=== PATIENT | female | born 1960 | race Caucasian/White ===

== ENCOUNTER 2017-01-11 17:24 | Inpatient (IN) | payer OTHER ==
--- NOTE | ~2017-01-11 | PA ---
Unit #: [id number] #: [id number] Patient: YUNIOR WATSON [id number] [facility] [address] [place] [address] [id number] MR#: [id number] NAME: YUNIOR WATSON ROOM: P131 Age: 56 Sex: F Admission Date: 01/11/2017 : 1960 Date of Assessment: Attending Physician: Stacey Rebolledo M.D. Admitting Physician: Stacey Rebolledo M.D. PSYCHIATRIC ASSESSMENT DATE OF SERVICE 01/11/2017. IDENTIFYING DATA Ms. Watson is a 56-year-old single white female, who is a resident of [place], [place], and is known to us from previous encounter and was transferred to us from [facility]. CHIEF COMPLAINT "I don't want to live anymore and god keeps making me live." HISTORY OF PRESENT ILLNESS Ms. Watson is a 56-year-old white female with known history of mood disorder, who is known to us from previous encounter and was taken to the emergency room at [facility], where she presented with increasing depression and suicidal ideations, "I prayed, prayed, and prayed. I tried to cut my arm right here and then I tried to cut my throat, but our stupid knifes are not sharp enough. I just want to . I don't know why, but I just want to ." She does endorse increasing depression, anxiety, disturbed sleep, psychomotor retardation, feelings of hopelessness and helplessness, and suicidal ideation and intent and plan and attempt, "I'm depressed. I was wanting to kill myself. My talked me into coming in. He caught me tying a rope on the stairs today." SUBSTANCE ABUSE HISTORY The patient reports history of opioid abuse, but that she has been getting her prescription of that from Dr. Zendejas. PAST PSYCHIATRIC HISTORY The patient has had a history of multiple [facility] and has been noncompliant with the medications and outpatient treatment. Once again, is not seeing a psychiatrist and is not taking any psychotropic medication and has history of poor compliance with outpatient treatment recommendation. PAST MEDICAL HISTORY COPD and degenerative disk disease. ALLERGIES Codeine and latex. PERSONAL AND SOCIAL HISTORY A 56-year-old white female, who reports that she is and lives at Unit #: [id number] #: [id number] Patient: YUNIOR WATSON home with her and has fairly decent social support system. MENTAL STATUS EXAMINATION Middle-aged white female, who was casually dressed with fair personal hygiene, appears to be in no acute distress or discomfort. She was awake and alert on interaction with intact orientation to time, place, and person. Her mood was anxious and depressed with a congruent affect. Her speech was slow and goal directed. She reports having suicidal ideations, but denies any homicidal ideations and also denies any auditory or visual hallucinations. Her insight and judgment remain significantly impaired. DIAGNOSTIC IMPRESSION Psychiatric: Bipolar disorder, most recent episode depressed, recurrent, moderate, without psychotic features. Medical: Chronic obstructive pulmonary disease and degenerative disk disease. Stressors: Moderate psychosocial stressors. TREATMENT PLAN 1. The patient has presented with a history of mood disorder and has been decompensating and will need inpatient hospitalization for safety and stabilization. We will start her back on her home medications and we will adjust the medications and monitor response. 2. Supportive therapy was provided to the patient. 3. Safe, structured, and nourishing environment will be provided. ESTIMATED LENGTH OF STAY 4 to 5 days. ABILITY TO HELP SELF Limited. WILLINGNESS TO HELP SELF The patient appears to be willing to help self. STRENGTHS 1. Communicative. 2. Cooperative. PROBLEMS 1. Chronic dysphoric symptoms. 2. Poor social support system. DISCHARGE CRITERIA This will be contingent upon the patient's ability to show resolution of her depression and anxiety and her ability to stay safe to herself, particularly after discharge from the hospital. Dictated by... Mason Reynolds/franny TD: 01/12/2017 14:13 JOB #: [id number] Unit #: [id number] #: [id number] Patient: YUNIOR WATSON PSYCHIATRIC ASSESSMENT X Stacey Rebolledo MD PSYCHIATRIC ASSESSMENT
--- NOTE | ~2017-01-11 | PN ---
Unit #: [id number] #: [id number] Patient: YUNIOR WATSON [id number] [facility] [address] [place] [address] [id number] MR#: [id number] NAME: YUNIOR WATSON. ROOM: P131 Age: 56 Sex: F Admission Date: 01/11/2017 : 1960 Attending Physician: Stacey Rebolledo M.D. Admitting Physician: Stacey Rebolledo M.D. Primary Care Physician: Primary Care Physician Belle BERGER NOTES DATE OF SERVICE: 01/12/2017 SUBJECTIVE Ms. Watson is a 56-year-old white female, who was seen today and chart was reviewed, and case was discussed with the staff. Reports the patient has been very agitated, irritable most of the night and is refusing to take her medication and asking specifically for her pain pills and then slamming doors and cursing and causing a lot of disturbance on the unit. On evaluation by me, the patient again was showing very poor insight into her situation, taking no responsibility for her behavior and not willing to cooperate and participate much with treatment stating "it is just a joke, it is just talk, talk, and talk." MENTAL STATUS EXAMINATION Middle-aged white female, who was casually dressed with fair personal hygiene, appears to be in slight distress or discomfort. She was awake and alert with impaired attention and concentration. Her mood was anxious with a congruent affect. Her speech was slow and tangential. Her thought processes were disorganized with some looseness of associations and flight of ideas. Her insight and judgment remain significantly impaired. TREATMENT PLAN We will continue on current medications and treatment protocol. We will monitor her response to medications and make further adjustments as needed. We will encourage her to show better compliance with treatment recommendations. Dictated by... Mason Reynolds/franny TD: 01/12/2017 23:32 JOB #: [id number] Unit #: [id number] #: [id number] Patient: YUNIOR WATSON [facility] PROGRESS NOTES X Kesha,Stacey García MD X PROGRESS NOTE
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
--- NOTE | ~2017-01-11 | PN ---
Unit #: [id number] #: [id number] Patient: YUNIOR WATSON [id number] [facility] [address] [place] [address] [id number] I MR#: [id number] NAME: YUNIOR WATSON ROOM: P131 Age: 56 Sex: F Admission Date: 01/11/2017 : 1960 Attending Physician: Stacey Rebolledo M.D. Admitting Physician: Stacey Rebolledo M.D. Primary Care Physician: Primary Care Physician Belle BERGER NOTES DATE OF SERVICE: 01/16/2017 SUBJECTIVE Ms. Watson is a 56-year-old white female, who was seen today and chart was reviewed, and case was discussed with the staff. She appears to be doing better and has been showing improvement in her depressive symptoms. Meanwhile, she has been cooperative with treatment recommendation and has been taking the medications and tolerating them fairly well with no reported side effects. MENTAL STATUS EXAMINATION Middle-aged white female who was casually dressed with fair personal hygiene, appears to be in no acute distress or discomfort. She was awake and alert with intact orientation. Her mood was anxious with a congruent affect. She denies any suicidal or homicidal ideations. Her insight and judgment remain significantly impaired. TREATMENT PLAN 1. We will continue on her current medications and treatment protocol. We will monitor her response to medications and make further adjustments as needed. 2. We will continue to follow up. Dictated by... Mason Reynolds/franny TD: 01/17/2017 00:48 JOB #: [id number] [facility] PROGRESS NOTES X Stacey Rebolledo MD PROGRESS NOTE
--- NOTE | ~2017-01-11 | PN ---
Unit #: [id number] #: [id number] Patient: YUNIOR WATSON [id number] [facility] [address] [place] [address] [id number] I MR#: [id number] NAME: YUNIOR WATSON. ROOM: P131 Age: 56 Sex: F Admission Date: 01/11/2017 : 1960 Attending Physician: Stacey Rebolledo M.D. Admitting Physician: Stacey Rebolledo M.D. Primary Care Physician: Primary Care Physician Belle CARBONE PROGRESS NOTES DATE 01/13/2017 DISCUSSION Ms. Watson is a 56-year-old white female who was seen today and chart was reviewed and case was discussed with the staff. She has been anxious, withdrawn, depressed and seclusive to herself and has been complaining of headache as well. Meanwhile, she has been taking the medications and tolerating them fairly well but does not feel the medications are effectively controlling her depressive symptoms. MENTAL STATUS EXAMINATION Middle-aged white female who was casually dressed with fair personal hygiene and appears to be in no acute distress or discomfort. She was awake and alert on interaction with intact orientation. Her mood was anxious and depressed with congruent affect. She reports having suicidal ideation though denies any homicidal ideations and also denies any auditory or visual hallucinations. Her insight and judgement remains slightly impaired. TREATMENT PLAN Will continue on current treatment protocol. Will monitor response. Dictated by... Mason Reynolds/sindy TD: 01/13/2017 17:51 JOB #: [id number] Unit #: [id number] #: [id number] Patient: YUNIOR WATSON [facility] PROGRESS NOTES X Stacey Rebolledo MD PROGRESS NOTE
--- NOTE | ~2017-01-11 | DS ---
Unit #: [id number] #: [id number] Patient: YUNIOR WATSON [id number] [facility] [address] [place] [address] [id number] I MR#: [id number] NAME: YUNIOR WATSON. ROOM: P131 Age: 56 Sex: F Admission Date: 01/11/2017 : 1960 Discharge Date: 01/17/2017 Attending Physician: Stacey Rebolledo M.D. Primary Care Physician: Primary Care Physician No DISCHARGE SUMMARY IDENTIFYING DATA Ms. Watson is a 56-year-old single white female, who is a resident of [place], [place], and is known to us from previous encounter and was brought to the hospital accompanied by her family members. DISCHARGE DIAGNOSES Psychiatric: Bipolar disorder, most recent episode depressed, recurrent, moderate, without psychotic features Medical: Chronic obstructive pulmonary disease, degenerative disk disease. Stressors: Moderate psychosocial stressors. HISTORY OF PRESENT ILLNESS Please see initial psychiatric evaluation for details. PAST PSYCHIATRIC HISTORY Please see initial psychiatric evaluation for details. PAST MEDICAL HISTORY Please see initial psychiatric evaluation for details. HOSPITAL COURSE The patient was admitted to [facility] adult [facility] at [facility] and was oriented to the hospital environment. Routine p.r.n. medications were initiated, and she was started back on her home medications. Upon initial presentation, was seen to be exhibiting significant depressive symptoms and as such, medications were adjusted and Effexor was increased to 150 mg a day and Seroquel was increased as well and she was closely monitored. She was taking the medications regularly and was tolerating them fairly well and was able to show a decent therapeutic response with improvement in depression and anxiety and was willing to continue treatment on an outpatient basis and as such, it was decided that she will be discharged home and will continue treatment on an outpatient basis. DISCHARGE MEDICATIONS Seroquel 300 mg at bedtime for depression and Effexor XR 150 mg in the morning for depression. DISCHARGE CONDITION Stable. PROGNOSIS Fair. Unit #: [id number] #: [id number] Patient: YUNIOR WATSON Dictated by... Stacey Rebolledo M.D. IAA/modl TD: 01/17/2017 07:34 JOB #: [id number] DISCHARGE SUMMARY X Stacey Rebolledo MD DISCHARGE SUMMARY
--- NOTE | ~2017-01-11 | PN ---
Unit #: [id number] #: [id number] Patient: YUNIOR WATSON [id number] [facility] [address] [place] [address] [id number] I MR#: [id number] NAME: YUNIOR WATSON. ROOM: P131 Age: 56 Sex: F Admission Date: 01/11/2017 : 1960 Attending Physician: Stacey Rebolledo M.D. Admitting Physician: Stacey Rebolledo M.D. Primary Care Physician: Primary Care Physician Belle CARBONE PROGRESS NOTES DATE January 14, 2017 DISCUSSION Ms. Watson is a 56-year-old white female, who was seen today and chart was reviewed and the case was discussed with the staff. The patient has been doing fairly well and reports improvement in her mood and daily functioning. Meanwhile, she has been cooperative with the treatment recommendations and she has been taking her medications and tolerating them fairly well with no reported side effects. MENTAL STATUS EXAMINATION Middle-aged white female, who was casually dressed with fair personal hygiene and appears to be in no acute distress or discomfort. She was awake and alert on interaction with intact orientation. Her mood was anxious with a congruent affect. Her speech is slow and restricted in content. The patient denies any suicidal or homicidal ideations. Her insight and judgment remain slightly impaired. TREATMENT PLAN 1. We will continue her on her current medications and treatment protocol, and will monitor her response, and make further adjustments as needed. 2. We will continue to followup. Dictated by... Mason Reynolds/charlee TD: 01/16/2017 12:52 JOB #: [id number] Unit #: [id number] #: [id number] Patient: YUNIOR WATSON [facility] PROGRESS NOTES X Stacey Rebolledo MD PROGRESS NOTE
--- NOTE | ~2017-01-11 | PN ---
Unit #: [id number] #: [id number] Patient: YUNIOR WATSON [id number] [facility] [address] [place] [address] [id number] MR#: [id number] NAME: YUNIOR WATSON. ROOM: P131 Age: 56 Sex: F Admission Date: 01/11/2017 : 1960 Attending Physician: Stacey Rebolledo M.D. Admitting Physician: Stacey Rebolledo M.D. Primary Care Physician: Primary Care Physician Belle BERGER NOTES DATE 01/15/2017 DISCUSSION Ms. Watson is a 56-year-old white female who was seen today and chart was reviewed and case was discussed with the staff. She has been anxious, withdrawn and rather seclusive to herself. Meanwhile, she has been showing improvement in her depression and anxiety and has been taking the medications and tolerating them fairly well. MENTAL STATUS EXAMINATION Middle-aged white female who was casually dressed with fair personal hygiene, appears to be in no acute distress or discomfort. She was awake and alert with intact orientation. Her mood was anxious with congruent affect. She denies any suicidal or homicidal ideations. Her insight and judgement remains slightly impaired. TREATMENT PLAN 1. We will continue her on her current medications and treatment protocol. We will monitor her response and make further adjustments as needed. 2. We will continue to follow up. Dictated by... Mason Reynolds/debbie TD: 01/17/2017 03:43 JOB #: [id number] Unit #: [id number] #: [id number] Patient: YUNIOR WATSON [facility] PROGRESS NOTES X Stacey Rebolledo MD PROGRESS NOTE
[~2017-01-11 17:24] MED LIST: AFRIN15 M1 INH; BENZONATATE; LORTAB 10-5001 EACH PO; NEURONTIN PO; NORCO 10-325 TA1 TAB PO; NORCO1 TAB 10/3 PO; PREDNISONE PO; PRILOSEC20 MG PO; PROMETHAZINE D118 ML PO; SUDAFED; XANAX0.5 MG PO; ZITHROMAX PO; ZOFRAN ODT4 MG PO
== END 2017-01-17 10:30 | disposition home or self-care (01) | DRG 885 ==
LOC: P1S 17:24
DX: F31.32 Bipolar disorder, current episode depressed, moderate (principal); J44.9 Chronic obstructive pulmonary disease, unspecified; G89.29 Other chronic pain; F17.200 Nicotine dependence, unspecified, uncomplicated
CPT/HCPCS: 84439; 84443; 84703